=== PATIENT | female | born 1960 | race Caucasian/White ===

== ENCOUNTER 2024-07-09 09:42 | Day surgery (SDC) | payer MEDICARE ==
[~2024-07-09] VITALS: Ht 170.2 cm; Wt 68.0 kg
[~2024-07-09 09:42] MED LIST: ATEN25 PO; BENADRYL25 MG PO; Balanced Salt Epinephrine Irrigation Solution 500 mL IR SCH; HYDR1TAB94 PO; HYDROCHLOROTHIA25 MG PO; LISI20 PO; LORA.5 PO; Lidocaine HCl/Pf 1% 5 ML VIAL XX SCH; METR59TL TOP; Moxifloxacin HCL 0.5 MG/0.1 ML 0.4MLSYR RIGHTEYE SCH; NS 500 ML IV ONE; PHENYLEPHRINE\\TROPICAMIDE\\TETRACAINE OPHTHALMIC DILATING SOLN RIGHTEYE PRN; Povidone-Iodine 450 DROP/30 ML Solution ONE; Povidone-Iodine 450 DROP/30 ML Solution RIGHTEYE SCH; Tetracaine HCl/Pf 0.5% Opth Soln 4 ml ONE; Triamcinolone Inj Susp 40 MG / ML 1ML Vial INJ SCH; Triamcinolone Inj Susp 40 MG / ML 1ML Vial ONE
[2024-07-09] MEDS ORDERED: Diazepam 5 MG Tab ONE (10:31)
[2024-07-09] MEDS ORDERED: NS 1,000 ML IV ONE (10:35)
[2024-07-09 11:54] VITALS: BP 177/71
== END 2024-07-09 11:49 | disposition home or self-care (01) ==
LOC: ORSCSDS 09:42
PROVIDERS: Ophthalmology
PROC: 08RJ3JZ Replacement of Right Lens with Synthetic Substitute, Percutaneous Approach (ICD-10-PCS; principal; 2024-07-09 11:00)
DX: H25.813 Combined forms of age-related cataract, bilateral (principal); I10 Essential (primary) hypertension; I48.91 Unspecified atrial fibrillation; Z79.899 Other long term (current) drug therapy
CPT/HCPCS: A9270; J3301; J7040; V2632

== ENCOUNTER 2024-07-23 10:01 | Day surgery (SDC) | payer MEDICARE ==
[~2024-07-23] VITALS: Ht 170.2 cm; Wt 67.0 kg
[~2024-07-23 10:01] MED LIST changes: +Moxifloxacin HCL 0.5 MG/0.1 ML 0.4MLSYR LEFTEYE SCH; -Moxifloxacin HCL 0.5 MG/0.1 ML 0.4MLSYR RIGHTEYE SCH; +PHENYLEPHRINE\\TROPICAMIDE\\TETRACAINE OPHTHALMIC DILATING SOLN LEFTEYE PRN; -PHENYLEPHRINE\\TROPICAMIDE\\TETRACAINE OPHTHALMIC DILATING SOLN RIGHTEYE PRN; +Povidone-Iodine 450 DROP/30 ML Solution LEFTEYE SCH; -Povidone-Iodine 450 DROP/30 ML Solution RIGHTEYE SCH
[2024-07-23] MEDS ORDERED: NS 1,000 ML IV ONE ×2 (10:32)
[2024-07-23] MEDS ORDERED: Tetracaine HCl 0.5% Opth Soln 15 ml LEFTEYE ONE (11:05)
[2024-07-23] MEDS ORDERED: Midazolam HCl 1MG / ML 2ML Vial ONE (11:05)
[2024-07-23] MEDS ORDERED: Labetalol HCL 5 MG/ML 4ML Injection (Single Dose) ONE (11:12)
[2024-07-23 11:25] VITALS: BP 144/81
== END 2024-07-23 11:38 | disposition home or self-care (01) ==
LOC: ORSCSDS 10:01
PROVIDERS: Ophthalmology
PROC: 08RK3JZ Replacement of Left Lens with Synthetic Substitute, Percutaneous Approach (ICD-10-PCS; principal; 2024-07-23 11:30)
DX: H25.812 Combined forms of age-related cataract, left eye (principal); Z96.1 Presence of intraocular lens; I10 Essential (primary) hypertension; I48.91 Unspecified atrial fibrillation; Z79.899 Other long term (current) drug therapy; F17.210 Nicotine dependence, cigarettes, uncomplicated
CPT/HCPCS: J2250; J3301; J7040; V2632